=== PATIENT | female | born 1960 | race Two or more races ===

== ENCOUNTER 2018-12-14 10:26 | Outpatient (CLI) | payer OTHER ==
[~2018-12-14 10:26] MED LIST: [UNRECOGNIZED DRUG - OTHER]
== END 2018-12-14 10:58 | disposition home or self-care (01) ==
LOC: RAD 10:26
DX: R10.11 Right upper quadrant pain (principal)

== ENCOUNTER 2018-12-22 14:37 | Outpatient (CLI) | payer OTHER | END 2018-12-22 15:00 | disposition home or self-care (01) | LOC: NUCLEAR 14:37 | DX: M85.60 Other cyst of bone, unspecified site (principal); M81.0 Age-related osteoporosis without current pathological fracture ==

== ENCOUNTER 2019-05-29 09:59 | Outpatient (CLI) | payer OTHER | END 2019-05-29 10:15 | disposition home or self-care (01) | LOC: SONOGRAMA 09:59 | DX: R00.2 Palpitations (principal) ==